=== PATIENT | female | born 1980 | race Caucasian/White ===

== ENCOUNTER 2017-04-23 11:35 | Emergency (ER) | payer BC ==
[~2017-04-23] VITALS: Ht 165.1 cm; Wt 77.1 kg
[2017-04-23 11:45] VITALS: BP 122/71
[2017-04-23] MEDS ORDERED: DIPHTH,PERTUSS(ACELL),TET TOX 0.5 ML DISP.SYRIN. VAX IM ONE (12:15)
[2017-04-23] MEDS ORDERED: LIDOCAINE 1%/EPI 1:200,000 30 ML VIAL. INJ ONE (13:00)
[2017-04-23] MEDS ORDERED: LIDOCAINE 2%/EPI 1:100,000 20 ML VIAL. IJ ONE (13:15)
[2017-04-23] MEDS ORDERED: AMOX1TAB61 PO (13:30)
--- NOTE | 2017-04-26 16:29 | PHYS DOC ---
Past Medical History Past Medical History: Anxiety Past Surgical History: No Surgical History Alcohol Use: None Drug Use: None Adult General Chief Complaint Chief Complaint: ANIMAL BITE HPI HPI Patient is a 36 year old female who presents with a laceration to her left upper lip from a dog bite. She bent down interacting with a dog that was visibly upset and she states that the dog got scared and bit her. The dog is up- to-date on all of his vaccinations. 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 She denies any other injury. Review of Systems Review of Systems Constitutional: Denies fever or chills [] Respiratory: Denies cough or shortness of breath [] Cardiovascular: No additional information not addressed in HPI [] Musculoskeletal: Denies back pain or joint pain [] Integument: The history of present illness Neurologic: Denies headache, focal weakness or sensory changes [] Endocrine: Denies polyuria or polydipsia [] All other systems were reviewed and found to be within normal limits, except as documented in this note. Current Medications Current Medications Current Medications Medications (Trade) Dose Ordered Sig/Amanuel Start Time Stop Time Status Last Admin Dose Admin Diphtheria/ Tetanus/Acell Pertussis (Boostrix) 0.5 ml ONCE ONCE 04/23/17 12:15 04/23/17 13:10 DC 04/23/17 13:15 0.5 ML Lidocaine/ Epinephrine (Xylocaine 1%-Epi 1:200,000) 30 ml 1X ONCE 04/23/17 13:00 04/23/17 13:01 UNV Lidocaine/ Epinephrine (Xylocaine 2%-Epi 1:100,000) 20 ml 1X ONCE 04/23/17 13:15 04/23/17 13:16 DC 04/23/17 13:16 20 ML Allergies Allergies Allergies Coded Allergies Type Severity Reaction Last Updated Verified No Known Medication Allergies Allergy Intermediate 04/23/17 Yes No Known Drug Allergies 04/23/17 No Physical Exam Physical Exam Constitutional: Well developed, well nourished, no acute distress, non-toxic appearance. [] Neck: Normal range of motion, no tenderness, supple, no stridor. [] Cardiovascular:Heart rate regular rhythm, no murmur [] Lungs & Thorax: Bilateral breath sounds clear to auscultation [] Skin: Patient has a 0.75 cm laceration to her left upper lip, it does not penetrate, it is deep but well approximated Neurologic: Alert and oriented X 3, normal motor function, normal sensory function, no focal deficits noted. [] Psychologic: Affect normal, judgement normal, mood normal. [] Current Patient Data Vital Signs Vital Signs Date Time Temp Pulse Resp B/P (MAP) Pulse Ox O2 Delivery O2 Flow Rate FiO2 04/23/17 11:45 98.4 85 16 100 Room Air 98.4 EKG EKG [] Radiology/Procedures Radiology/Procedures []Procedure: Laceration repair Indications: Laceration to left upper lip Patient consent: The procedure and risks were explained in detail. Questions were encouraged and answered. Anesthesia: 1% buffered lidocaine Description of procedure: The area was prepped and draped using sterile technique. Wound was cleansed with antiseptic solution. Local infiltrate with 1 % buffered lidocaine was well-tolerated. Nonabsorbable suture material was used. Number of stitches: 3 Patient tolerated the procedure well Complications: none Estimated blood loss: Less than 5 ml Disposition: Wound care instructions were given. Patient discharged home. She is to follow-up in 7-10 days for suture removal. Course & Med Decision Making Course & Med Decision Making Pertinent Labs and Imaging studies reviewed. (See chart for details) []1. Laceration Follow-up with your primary care provider in 7-10 days for suture removal. Please take your antibiotic as prescribed. Watch for signs of infection. If any signs of infection appear either follow-up with your PCP or return to the emergency department. Dragon Disclaimer Dragon Disclaimer This electronic medical record was generated, in whole or in part, using a voice recognition dictation system. Departure Departure Impression: Primary Impression: Animal bite of face Additional Impression: Laceration Disposition: 01 HOME, SELF-CARE Condition: STABLE Patient Instructions: Laceration Care, Adult, Animal Bite Additional Instructions: Follow-up with your primary care provider in 7-10 days for suture removal. Please take your antibiotic as prescribed. Watch for signs of infection. If any signs of infection appear either follow-up with your PCP or return to the emergency department. Scripts Amoxicillin/Potassium Clav (AUGMENTIN 875-125 TABLET) 1 Each Tablet 1 TAB PO BID, #20 TAB Prov: LILLIANA TOWNSEND APRN 04/23/17 Problem Qualifiers LILLIANA TOWNSEND APRN Apr 26, 2017 16:29
== END 2017-04-23 13:25 | disposition home or self-care (01) ==
LOC: ER 11:35
DX: S01.511A Laceration without foreign body of lip, initial encounter (principal); F41.9 Anxiety disorder, unspecified; W54.0XXA Bitten by dog, initial encounter; Y93.89 Activity, other specified; Y92.89 Other specified places as the place of occurrence of the external cause; Y99.8 Other external cause status
CPT/HCPCS: 12011; 90471; 90715; 99283; J3490